=== PATIENT | male | born 1985 ===

== ENCOUNTER 2017-07-15 10:17 | Inpatient (IN) | payer OTHER ==
[2016-12-31 09:44] VITALS: BMI 34.0
[2017-07-15] MEDS ORDERED: Thrombin Topical 5,000 IU Spray Kit ONE ×2 (10:49→15:24)
[2017-07-15] MEDS ORDERED: Bacitracin Ointment 30 GM TUBE ONE ×2 (10:49→15:38)
[2017-07-15] MEDS ORDERED: Absorbable Gelatin Sponge Size 100 ONE (10:49)
[2017-07-15] MEDS ORDERED: Lidocaine 2% w Epi 1:100,000 Inj IJ ONE (10:50)
[2017-07-15] MEDS ORDERED: Propofol 10 mg/ml 1,000 MG/100 ML VIAL ONE (11:07)
[2017-07-15] MEDS ORDERED: Remifentanil 1 mg/3 ml Vial IV ONE (11:07)
[2017-07-15] MEDS ORDERED: Propofol 10 mg/ml Inj (20 ML) ONE ×5 (11:09→15:04)
[2017-07-15] MEDS ORDERED: Bupivacaine Liposomal Inj 20 ml INJ ONE (11:18)
[2017-07-15] MEDS ORDERED: Heparin 30,000 UNITS in Sodium Chloride 0.9% 1,000 ML IV ONE (11:24)
[2017-07-15] MEDS ORDERED: Midazolam 2 MG/2 ML VIAL ONE (11:36)
[2017-07-15] MEDS ORDERED: ceFAZolin IV 2 gm in Dextrose 1 GM/50 ML BAG IVPB ONE (11:52)
[2017-07-15] MEDS ORDERED: Sodium Chloride 0.9% 20 ML IV ONE ×2 (11:55→12:25)
[2017-07-15] MEDS ORDERED: Bupivacaine HCl 0.5% PF (10 ml) Inj ONE (12:29)
[2017-07-15] MEDS: ceFAZolin IV 1 gm in Dextrose 1 GM/50 ML BAG IVPB ONE (12:45)
[2017-07-15] MEDS ORDERED: Thrombin Topical 20,000 Intl Units Spray Kit TOP ONE (15:21)
[2017-07-15] MEDS ORDERED: Neostigmine Methylsulfate 3mg/3ml Syringe IV ONE (15:36)
[2017-07-15] MEDS: HYDROmorphone 0.5 mg/0.5 ml ISec IVP PRN ×2 (16:45→17:15)
[2017-07-15] MEDS: Potassium Ch 20mEq in D5-1/2NS 1,000 ML IV SCH (20:00)
[2017-07-16] MEDS: Potassium Ch 20mEq in D5-1/2NS 1,000 ML IV SCH ×5 (01:00→19:57)
[2017-07-16] MEDS: Lactated Ringer's 1,000 ML IV SCH (02:45)
--- NOTE | 2017-07-16 07:31 | OP ---
PROCEDURE DATE: 07/15/2017 PREOPERATIVE DIAGNOSES: Lumbar disc derangement with annular tear and chronic discogenic low back pain at L5-S1. POSTOPERATIVE DIAGNOSES: Lumbar disc derangement with annular tear and chronic discogenic low back pain at L5-S1. PROCEDURES: L5-S1 decompression, discectomy, interbody fusion, segmental pedicle screw fixation, and posterolateral fusion with iliac autograft. SURGEON: Dr. Manuel Diaz. CO-SURGEON: Dr. Quintana. TYPE OF ANESTHESIA: General endotracheal. ESTIMATED BLOOD LOSS: 600 mL, 250 mL returned via Cell Saver. COMPLICATIONS: None. JUSTIFICATION: The patient is status post on-the-job accident and suffering with severe low back pain with some radicular complaints. He failed rather extensive conservative treatment. MRI documented disc collapse, desiccation and annular tear at L5-S1. Provocative lumbar discography confirmed the diagnosis. The patient was offered the possibility of operative intervention by discectomy, interbody fusion, and segmental fixation. The nature of this procedure, the rationale behind it, alternatives, potential risks, complications, realistic chance of success and recovery time were discussed with him at length. All of his questions were answered. He fully understood all the above and he elected to proceed as offered. DESCRIPTION OF PROCEDURE: The patient was taken to the operating room. He was hooked up to neurophysiological monitoring, intubated, anesthetized, and carefully placed on the OR table on a Riccardo frame in a prone position. Care was taken to protect his face, eyes, endotracheal tube, and all bony prominences. The entire low back region was then hair clipped, scrubbed with acetone, scrubbed, painted, and draped in the usual sterile manner. Incision was localized with lateral fluoroscopy overlying the spinous processes of L4 through the sacrum. After prepping and draping, the incision was made with a #10 blade knife, carried down to the level of the fascia. The Bovie cautery was used to incise the fascia and strip the paraspinal muscles off the spinous processes and laminae of L5 through the sacrum. Deep self-retaining retractors were placed and the exposure was widened out bilaterally to expose the L5 transverse processes, the lateral pars, and the lateral facet, as well as the sacral ala. Bleeding was controlled throughout with Bovie cautery, thrombin powder, and Gelfoam. At this point, attention was turned towards bone harvestation. A 5 inch trocar was passed through the fascia directly into the right superior posterior iliac crest. Approximately 90 mL of marrow was aspirated. This was then spun down to obtain the bone marrow mesenchymal cells which was then later used in the fusion. The decompression was begun with the Leksell rongeur, removing the spinous process at S1 and the top of L5. The L5 lamina was further thinned down with the Leksell. This bone was saved for later use in the fusion. The laminotomy was then begun at this level with various sized Kerrison rongeurs removing approximately the inferior two-thirds of L5 lamina and performing generous medial facetectomies bilaterally. This was done with the assistance of a high-speed drill and various Kerrison and generous foraminotomy was performed at the exiting L5 nerve root. The S1 nerve root was traced out heading below the S1 pedicle and ensured that all four of the nerve roots were completely decompressed. Bleeding controlled throughout with thrombin, Gelfoam, and bipolar cautery with copious amounts at epidural veins that required bipolar coagulation. At this point, the left S1 nerve root was gently retracted medially, disc was excised and grossly adherent disc material with the use of pituitary rongeurs and 8 through 11 mm derrick were used to further remove all disc material, as well as annulus and began with decortication. This was completed with large curettes. Additionally, down-biting curette was used to remove some of the central disc prolapse and upbiting curette was similarly used to scrape some of the side areas by the lateral annulus. This identical procedure was then performed on the right side, after which bone grafting material was locally packed into the disc space. This included chopped off products of decompression and additional allograft and marrow-impregnated hydroxyapatite sponges. Following this, a 9 x 11 mm trapezoidal carbon-fiber PEEK cage filled with bone grafting material was tapped into the interspace until it was well seated and countersunk. This was confirmed visually and fluoroscopically and then, the identical grafting material and the same implant were then placed on the left side; again, visual inspection and lateral fluoroscopy confirmed excellent position of both the PEEK implants. We then turned our attention to the posterolateral fusion. A high-speed drill was used to decorticate the lateral surfaces which included the L5 transverse process, lateral pars, lateral facet, and sacral ala on both sides. At this point, we placed the pedicle screws. We used the technique of using constant lateral fluoroscopy identifying the pedicular entrance both fluoroscopically and visually, drilling the cortical bone, passing a Steffee gear shift down the balanced pedicle into vertebral body, sounding the passageway with a ball-tip probe to ensure there was bone all around, and then placing the appropriate-sized screw. Additionally, the gear shift and the screws were all stimulated with constant electrical current while monitoring EMG activity to ensure there was no evidence of electrophysiological breach. Using this technique, 6.0 diameter screws of 40 and 45 mm length were placed respectively at L5 and 7.0 diameter screws of 35 and 30 mm length were placed bilaterally at S1. No screw elicited any meaningful EMG activity (below 20 milliamps) and both lateral and AP fluoroscopy confirmed excellent position of all 4 screws. At this point, we placed the appropriate-sized titanium bal in the new screw head receptacles on each side. Locking nuts were then placed and torque-wrenched tight. We did attempt to place a cross connector, but because of the divergence of the 2 rods, this was impossible. We then placed all further bone grafting material into the lateral gutters; again, this included chopped off products of decompression, additional bone matrix protein, additional allograft and bone marrow mesenchymal cells impregnated on hydroxyapatite sponges. At this point, we ensured that the epidural space was completely free of bone, foreign matter, disc, etc. A layer of thrombin and powdered Gelfoam followed by a layer of solid Gelfoam was placed in the peridural space. The muscle reapproximated using interrupted 0 Vicryl. The fascia was closed using a tight interrupted 0 Vicryl stitch. The wound was copiously irrigated with the antibiotic solution. The subQ was closed in two separate layers of 2-0 Vicryl. The skin closed with running 3-0 Monocryl stitch, benzoin, and Steri-Strips. Dressings were applied. The patient was turned back onto a supine position. He was aroused from anesthesia and extubated. He was noted to be moving all groups of both lower extremities with excellent strength prior to leaving to the recovery room. All counts were correct. Neurophysiological monitoring including somatosensory evoked potentials and EMG remained stable throughout the procedure. No complications. Manuel Diaz MD [facility] # [id number]
[2017-07-16] MEDS: GlipiZIDE 2.5 mg Tab PO SCH (10:14)
--- NOTE | 2017-07-16 10:24 | RAD ---
PROCEDURE: INTRA UNDER FLUOROSCOPY LUMBAR SPINE HISTORY: FUSION L5/S1 COMPARISON: TECHNIQUE: Intraoperative fluoroscopy was provided to the referring physician to assist and lumbar spinal surgery. Spot fluoroscopic images have been submitted. FINDINGS: Five spot spot fluoroscopic images and submitted demonstrating localization of the L5-S1 level and operative procedure transfixing L5 and S1 vertebral bodies with posterior connecting rods and transpedicular screws placed bilaterally as well as intervertebral fusion. Please see report for further detail. 69.1 of fluoroscopy time was utilized with a total dose of 1.84 mGy recorded. IMPRESSION: As above and please sees op report for greater detail.
--- NOTE | 2017-07-16 15:25 | CP.PCM.PN ---
Subjective - Date & Time of Evaluation Date of Evaluation: 07/16/17 Time of Evaluation: 15:21 - Subjective Subjective: SPINE - POD #1 Pt resting in bed. Was OOB earlier. Complains of inability to void. No flatus yet. Wants a pill for sleeping but seems drowsy. VSS. Afebrile. Abd appears distended. Moves LE's actively. Neuro grossly intact. Plan: Bladder scan shows 825cc so will reinsert knapp for at least overnight. Continue to mobilize as tolerated. Has 17 steps at home so may need rehab if covered. Objective - Vital Signs/Intake and Output Vital Signs (last 24 hours): Temp Pulse Resp BP Pulse Ox 98.6 F 99 H 20 123/78 97 07/16/17 08:21 07/16/17 08:21 07/16/17 08:21 07/16/17 08:21 07/16/17 08:21 Intake and Output: 07/16/17 07/16/17 06:59 18:59 Intake Total 1120 Output Total 1050 Balance -1050 1120 - Medications Medications: Current Medications Acetaminophen (Tylenol 325mg Tab) 650 mg PO Q6 PRN PRN Reason: Fever >100.4 F Docusate Sodium (Colace) 100 mg PO BID [facility] Last Admin: 07/16/17 10:14 Dose: 100 mg Glipizide (Glucotrol) 2.5 mg PO DAILY [facility] Last Admin: 07/16/17 10:14 Dose: 2.5 mg Hydromorphone/Sodium Chloride (Dilaudid Chief Fundraising Officer) 6 mg IV Q4H PRN; Protocol PRN Reason: Pain, severe (8-10) Last Admin: 07/16/17 13:51 Dose: 6 mg Potassium Chloride/Dextrose/Sod Cl (Potassium Chl 20 Meq In D5-1/2ns) 1,000 mls @ 110 mls/hr IV .Q9H6M [facility] Last Admin: 07/16/17 13:43 Dose: 110 mls/hr Lactated Ringer's (Lactated Ringer's) 1,000 mls @ 100 mls/hr IV .Q10H [facility] Last Admin: 07/16/17 02:45 Dose: Not Given [facility]) [facility] Last Admin: 07/16/17 09:00 Dose: 500 mg Rosuvastatin Calcium (Crestor) 10 mg PO [facility] Last Admin: 07/15/17 22:07 Dose: 10 mg
[2017-07-17] MEDS: Potassium Ch 20mEq in D5-1/2NS 1,000 ML IV SCH ×3 (06:16→14:42)
--- NOTE | 2017-07-17 07:05 | OP ---
PROCEDURE DATE: 07/15/2017 PREOPERATIVE DIAGNOSIS: Disk derangement of L5-S1. POSTOPERATIVE DIAGNOSIS: Disk derangement of L5-S1. PROCEDURES: 1. Posterior lumbar interbody and lateral fusion L5-S1. 2. Use of intervertebral devices. 3. Use of non-segmental spinal instrumentation. 4. Autograft by means of bone marrow aspiration. SURGEON: Dr. Levi Quintana MD TYPE OF ANESTHESIA: General endotracheal intubation. DESCRIPTION OF PROCEDURE: The patient was brought to the operating room and general anesthesia was achieved. Intravenous antibiotics were administered while spinal cord monitoring leads were placed throughout the patient's body. Real time monitoring was done by communications technician in the room, and local monitoring done by physician as well. Sequential compression boots were placed each of the patient's legs. After the antibiotics administered, a Zhao catheter was inserted. The patient then gently transferred onto the operating table and placed prone on Riccardo frame, keeping his abdomen free of pressure anteriorly. Care was taken to protect the elbows and knees with pressure points. Sterile drape was used to seal the patient's perineal region in the operative field, and his back was scrubbed and sterilely prepped and draped. Level of an incision was noted under fluoroscopy, infiltrated lidocaine with epinephrine. Incision was made sharply in midline, taken down to the subcutaneous tissue using sharp and blunt dissection. Hemostasis achieved with electrocautery. The fascia is divided and stripped laterally of the spinous processes and laminae out to the level of transverse processes of L5 on each side as well as the sacral ala on each side. Soft tissue attachments were cleared using Patel elevators and electrocautery. Fluoroscopic views showed that we arrived at the appropriate levels. A trocar was placed at the posterior right ilium and 90 mL of bone marrow aspirate was obtained. This was sterilely passed off to the communications technician who processed this with harvest system to collect the mesenchymal stem cells. This was then sterilely passed back to the OR table. The marrow was used to process through the IC chamber as well as soak strips and cubes of CONFORM hydroxyapatite sponge. Thrombinated Gelfoam powder was used to hemostasis at the donor site. The Waynaut bone cutter was used to remove the spinous processes, the laminae thinned down with a Leksell rongeur. Laminectomy was then carried out and accorded to cephalad fashion in the midline and then taken out laterally on each side. At the level of the disc space, it was taken out laterally enough that we could pass a 9 x 11 trial broach to indicate that we had enough room for the intervertebral device. Hemostasis achieved with bipolar cautery as well as thrombinated Gelfoam powder. The thecal sac was gently retracted and the annulus incised sharply. Disc material was removed with a combination of pituitary rongeur and the endplate derrick up to including a size #11. Ring and spoon curettes were used as well. We then went to the opposite side where in similar fashion annulus was incised and again, the endplate derrick up to including size #11 were used along with pituitary rongeur and the ring and spoon curettes. Once all the tissue had cleared out of the disc space and of the endplates, the bone grafting substrate which consists of the IC chamber bone, the patient's own laminar bone, as well as Optium putty, was packed into the disc space along with cubes of the marrow soaked CONFORM. A 9 x 11 graft package was then tamped into place and countersunk. We then moved back to the original side where we inspected to make sure no remaining pieces of disc were present. Then more of the bone grafting substrate and the marrow soaked CONFORM Cubes were packed into the disc space along with another graft pack 9 x 11 cage. Visually, the cages appeared to be in good position. We then proceeded with the posterolateral fusion. The transverse processes of L5 on each side along with the L5-S1 facet joints and the sacral ala were all decorticated using the high-speed drill. Under fluoroscopic guidance, the entry point was made for the left L5 screw. The gear shift tool was used to create channel through the pedicle and the bony integrity confirmed with the ball tip probe and a 6.0 x 45 mm screw was inserted. On the right side, the similar technique was used with the drill and the gear shift tool. Again, once the bony integrity was confirmed with the ball tip probe, a 14 x 6.0 mm EXPEDIUM screw was inserted. Stimulation of the gear shift tool on each side as well as the shank and top of each screw revealed no electrophysiologic abnormalities. We then moved down to the S1 level where again under fluoroscopic guidance the entry point on each side was seen and opened with the drill. The gear shift tool was then used to create the channel into the sacrum on each side. The bony integrity confirmed and 7.0 x 30 mm screws used on the right and 7 x 35 mm screw on the left. A 35 mm pre-cut lordotic bal was used to connect the 2 screws on the left and 45 mm bal on the right. This was secured to the screws using caps and then appropriately torqued. The remaining marrow soaked strips of CONFORM along with the remaining bone grafting substrate was then packed lateral to the bal and into the decorticated facet joint. The midline was irrigated and inspected for any bone fragments. Hemostasis achieved with thrombinated Gelfoam powder and bipolar cautery. A large piece of solid Gelfoam was used to cover the exposed neural elements. Due to the divergent nature of the rods, we were unable to put a CrossLink on. The wound was then closed in layers with interrupted sutures of 0 Vicryl for the muscle and the fascia. The subcutaneous tissue was copiously irrigated with antibiotic solution. Paraspinal tissues were injected with 20 mL of 0.5% Marcaine along with 20 mL of Exparel diluted with 20 mL of saline. The subcutaneous tissue was then approximated with interrupted suture of 2-0 Vicryl. The skin was closed with a running subcuticular stitch of 3-0 Monocryl. Steri-Strips and a sterile dressing were applied. The patient was then gently transferred back onto a stretcher in supine position. He was awakened and extubated. He was taken to recovery room in stable condition. He tolerated the procedure well. Estimated blood loss was 600 mL. He received 2 L of crystalloid during the surgery as well as 250 mL back of Cell Saver. He had urine output of 250 mL over the course of the procedure. He was actively moving his extremities at the time of his transfer and no permanent electrophysiologic abnormalities were noted at the completion of the case. Leiv Quintana MD
[2017-07-17] MEDS: GlipiZIDE 2.5 mg Tab PO SCH (10:17)
[2017-07-17] MEDS: Lactated Ringer's 1,000 ML IV SCH ×2 (11:46→18:45)
[2017-07-17] MEDS ORDERED: Oxycodone/Acetaminophen 5/325 mg Tab PO PRN ×2 (12:15→12:28)
[2017-07-17] MEDS: Oxycodone/Acetaminophen 5/325 mg Tab PO PRN ×3 (12:45→19:48)
--- NOTE | 2017-07-17 14:37 | CP.PCM.PN ---
Subjective - Date & Time of Evaluation Date of Evaluation: 07/17/17 Time of Evaluation: 14:35 - Subjective Subjective: POD 2 doing well c/o constipation ambulated with PT eating urinated 5/5 strength throughout P cont mobilization fleet enema ss working on dc plan Objective - Vital Signs/Intake and Output Vital Signs (last 24 hours): Temp Pulse Resp BP Pulse Ox 99.7 F H 117 H 20 110/64 97 07/17/17 07:15 07/17/17 07:15 07/17/17 07:15 07/17/17 07:15 07/17/17 07:15 Intake and Output: 07/17/17 07/17/17 06:59 18:59 Intake Total 2180 Output Total 2300 Balance -120 - Medications Medications: Current Medications Acetaminophen (Tylenol 325mg Tab) 650 mg PO Q6 PRN PRN Reason: Fever >100.4 F Last Admin: 07/16/17 23:34 Dose: 650 mg Docusate Sodium (Colace) 100 mg PO BID [facility] Last Admin: 07/17/17 11:48 Dose: 100 mg Glipizide (Glucotrol) 2.5 mg PO DAILY [facility] Last Admin: 07/17/17 10:17 Dose: 2.5 mg Potassium Chloride/Dextrose/Sod Cl (Potassium Chl 20 Meq In D5-1/2ns) 1,000 mls @ 110 mls/hr IV .Q9H6M [facility] Last Admin: 07/17/17 11:44 Dose: 110 mls/hr Lactated Ringer's (Lactated Ringer's) 1,000 mls @ 100 mls/hr IV .Q10H [facility] Last Admin: 07/17/17 11:46 Dose: Not Given [facility] Last Admin: 07/17/17 08:18 Dose: 500 mg Oxycodone HCl (Oxycontin Extended Release Tab) 20 mg PO Q12 [facility] Oxycodone/Acetaminophen (Percocet 5/325 Mg Tab) 2 tab PO Q4H PRN PRN Reason: Pain, severe (8-10) Stop: 07/20/17 12:28 Last Admin: 07/17/17 12:45 Dose: 2 tab Oxycodone/Acetaminophen (Percocet 5/325 Mg Tab) 1 tab PO Q4H PRN PRN Reason: Pain, moderate (4-7) Stop: 07/20/17 12:29 Rosuvastatin Calcium (Crestor) 10 mg PO HS [facility] Last Admin: 07/16/17 21:25 Dose: 10 mg Sodium Phosphate (Fleet Enema) 135 ml GA ONCE ONE Stop: 07/17/17 14:35
[2017-07-17] MEDS ORDERED: Magnesium Hydroxide Susp 30 ml UD PO ONE (20:47)
[2017-07-17] MEDS: oxyCODONE 20 mg ER Tab (oxyCONTIN) PO SCH (21:31)
[2017-07-18] MEDS: Oxycodone/Acetaminophen 5/325 mg Tab PO PRN ×2 (03:26→16:28)
[2017-07-18] MEDS: Potassium Ch 20mEq in D5-1/2NS 1,000 ML IV SCH (08:20)
[2017-07-18] MEDS: oxyCODONE 20 mg ER Tab (oxyCONTIN) PO SCH ×2 (09:58→21:17)
[2017-07-18] MEDS: GlipiZIDE 2.5 mg Tab PO SCH (10:02)
[2017-07-18] MEDS: Lactated Ringer's 1,000 ML IV SCH (14:30)
--- NOTE | 2017-07-18 17:04 | CP.PCM.PN ---
Subjective - Date & Time of Evaluation Date of Evaluation: 07/18/17 Time of Evaluation: 17:00 - Subjective Subjective: SPINE - POD #3 Pt resting in bed. Appears more comfortable. States he amb in arreguin earier w RW. Still upset no signif BM. Explained as he wasn't eating much may not be a lot inside. VSS. Afebrile. Neuro remains intact. Incision clean and dry. Abd soft, non- distended. Plan: Cont to mobilize as tolerated. PT again Thursday. Has 17 steps at home so need to see if cleared for d/c home or authorized for acute rehab transfer. Objective - Vital Signs/Intake and Output Vital Signs (last 24 hours): Temp Pulse Resp BP Pulse Ox 98.1 F 111 H 20 119/79 96 07/18/17 15:34 07/18/17 15:34 07/18/17 15:34 07/18/17 15:34 07/18/17 15:34 Intake and Output: 07/18/17 07/18/17 06:59 18:59 Intake Total 1250 Output Total 1000 Balance 250 - Medications Medications: Current Medications Acetaminophen (Tylenol 325mg Tab) 650 mg PO Q6 PRN PRN Reason: Fever >100.4 F Last Admin: 07/16/17 23:34 Dose: 650 mg Docusate Sodium (Colace) 100 mg PO BID [facility] Last Admin: 07/18/17 10:02 Dose: 100 mg Glipizide (Glucotrol) 2.5 mg PO DAILY [facility] Last Admin: 07/18/17 10:02 Dose: 2.5 mg Lactated Ringer's (Lactated Ringer's) 1,000 mls @ 100 mls/hr IV .Q10H [facility] Last Admin: 07/18/17 14:30 Dose: Not Given [facility] Last Admin: 07/18/17 16:29 Dose: 500 mg Oxycodone HCl (Oxycontin Extended Release Tab) 20 mg PO Q12 [facility] Last Admin: 07/18/17 09:58 Dose: 20 mg Oxycodone/Acetaminophen (Percocet 5/325 Mg Tab) 2 tab PO Q4H PRN PRN Reason: Pain, severe (8-10) Stop: 07/20/17 12:28 Last Admin: 07/18/17 16:28 Dose: 2 tab Oxycodone/Acetaminophen (Percocet 5/325 Mg Tab) 1 tab PO Q4H PRN PRN Reason: Pain, moderate (4-7) Stop: 07/20/17 12:29 Rosuvastatin Calcium (Crestor) 10 mg PO HS [facility] Last Admin: 07/17/17 21:31 Dose: 10 mg
[2017-07-19] MEDS: Oxycodone/Acetaminophen 5/325 mg Tab PO PRN ×2 (02:06→13:19)
[2017-07-19] MEDS: GlipiZIDE 2.5 mg Tab PO SCH (09:57)
[2017-07-19] MEDS: oxyCODONE 20 mg ER Tab (oxyCONTIN) PO SCH ×2 (09:58→21:34)
--- NOTE | 2017-07-19 11:45 | CP.PCM.PN ---
Subjective - Date & Time of Evaluation Date of Evaluation: 07/19/17 Time of Evaluation: 11:44 - Subjective Subjective: ambulating stais yesterday lesspain neuro stable p ss for dc planning Objective - Vital Signs/Intake and Output Vital Signs (last 24 hours): Temp Pulse Resp BP Pulse Ox 97.7 F 107 H 18 98/61 L 97 07/19/17 07:30 07/19/17 07:30 07/19/17 07:30 07/19/17 07:30 07/19/17 07:30 Intake and Output: 07/19/17 07/19/17 06:59 18:59 Output Total 600 Balance -600 - Medications Medications: Current Medications Acetaminophen (Tylenol 325mg Tab) 650 mg PO Q6 PRN PRN Reason: Fever >100.4 F Last Admin: 07/16/17 23:34 Dose: 650 mg Docusate Sodium (Colace) 100 mg PO BID [facility] Last Admin: 07/19/17 09:57 Dose: 100 mg Glipizide (Glucotrol) 2.5 mg PO DAILY [facility] Last Admin: 07/19/17 09:57 Dose: 2.5 mg Metformin HCl (Glucophage) 500 mg PO BIDCC [facility] Last Admin: 07/19/17 09:57 Dose: 500 mg Oxycodone HCl (Oxycontin Extended Release Tab) 20 mg PO Q12 [facility] Last Admin: 07/19/17 09:58 Dose: 20 mg Oxycodone/Acetaminophen (Percocet 5/325 Mg Tab) 2 tab PO Q4H PRN PRN Reason: Pain, severe (8-10) Stop: 07/20/17 12:28 Last Admin: 07/19/17 02:06 Dose: 2 tab Oxycodone/Acetaminophen (Percocet 5/325 Mg Tab) 1 tab PO Q4H PRN PRN Reason: Pain, moderate (4-7) Stop: 07/20/17 12:29 Rosuvastatin Calcium (Crestor) 10 mg PO [facility] Last Admin: 07/18/17 21:16 Dose: 10 mg
--- NOTE | 2017-07-20 07:27 | HP ---
HISTORY OF PRESENT ILLNESS: Mr. Thomas is a 32-year-old gentleman who was initially on the job approximately 02/2015, he fell approximately 12 feet. He badly fractured his left wrist, both feet, and developed low back pain. He has severe pain in low lumbar area, radiates laterally to both sides. He rates the level of pain as an 8 on a 0 to 10 scale. He is quite miserable and is quite debilitated, was never able to return to work. He was treated with conservative treatment with multiple weeks of physiotherapy without benefit. He has also had some spinal injections. He failed all the above. His MRI documented disc prolapse with an annular tear at the L5-S1 level, provocative lumbar discography confirmed this as the pain generator. He is being admitted for L5-S1 discectomy, interbody fusion, and segmental fixation. PAST MEDICAL HISTORY: Negative other than his most recent injury. ALLERGIES: HE DENIES ANY ALLERGIES TO MEDICATION. PAST SOCIAL HISTORY: He has never smoked. He never drinks. PHYSICAL EXAMINATION: GENERAL: He does have good strength throughout. Sensory exam is within normal limits. Reflexes are 2+. Straight leg raising is negative for radicular pain. He has a fair amount of tenderness to palpation in the lumbosacral junction. His range of motion is markedly limited both on flexion and extension. His baseline gait is within normal limits. IMPRESSION: The patient is now being admitted for L5-S1 decompression, fixation and fusion. 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 All his questions were answered. He fully understood of the above and would like to proceed, he is now being admitted for this procedure. Manuel Diaz MD
[2017-07-20] MEDS: oxyCODONE 20 mg ER Tab (oxyCONTIN) PO SCH ×2 (09:52→21:27)
[2017-07-20] MEDS: GlipiZIDE 2.5 mg Tab PO SCH (09:54)
--- NOTE | 2017-07-20 14:42 | CP.PCM.PN ---
Subjective - Date & Time of Evaluation Date of Evaluation: 07/20/17 Time of Evaluation: 14:38 - Subjective Subjective: SPINE - POD #5 Pt states he is amb on own to and in hallway. Doesn't feel he can do 17 steps at home however. Still waiting to hear from rehab facility in [place]. VSS. Afebrile. Neuro intact. Nursing listened and pt w normoactive bowel sounds. Abd soft, non-tender, non-distended. Plan: transfer to rehab when bed available. Explained via licensed professional counselor that bowels not very productive as pt not eating a lot, reportedly had large BM after enema over weekend, and natural slowing w narcotics. Objective - Vital Signs/Intake and Output Vital Signs (last 24 hours): Temp Pulse Resp BP Pulse Ox 98.7 F 96 H 20 110/70 97 07/20/17 09:42 07/20/17 09:42 07/20/17 09:42 07/20/17 09:42 07/20/17 09:42 - Medications Medications: Current Medications Acetaminophen (Tylenol 325mg Tab) 650 mg PO Q6 PRN PRN Reason: Fever >100.4 F Last Admin: 07/16/17 23:34 Dose: 650 mg Docusate Sodium (Colace) 100 mg PO BID [facility] Last Admin: 07/20/17 09:53 Dose: 100 mg Glipizide (Glucotrol) 2.5 mg PO DAILY [facility] Last Admin: 07/20/17 09:54 Dose: 2.5 mg Metformin HCl (Glucophage) 500 mg PO BIDCC [facility] Last Admin: 07/20/17 09:51 Dose: 500 mg Oxycodone HCl (Oxycontin Extended Release Tab) 20 mg PO Q12 [facility] Last Admin: 07/20/17 09:52 Dose: 20 mg Rosuvastatin Calcium (Crestor) 10 mg PO HS [facility] Last Admin: 07/19/17 21:34 Dose: 10 mg
[2017-07-21 08:48] VITALS: BP 106/68; TEMP 97
[2017-07-21] MEDS: GlipiZIDE 2.5 mg Tab PO SCH (10:07)
[2017-07-21] MEDS: oxyCODONE 20 mg ER Tab (oxyCONTIN) PO SCH (10:08)
[2017-07-21 11:28] VITALS: PULSE 89; RESP 20; O2SAT 98
--- NOTE | 2017-07-21 14:25 | CP.PCM.PN ---
Subjective - Date & Time of Evaluation Date of Evaluation: 07/21/17 Time of Evaluation: 14:24 - Subjective Subjective: SPINE - POD #6 Pt amb 300', did 20 steps today. Therefore will d/c to home. Recheck in 10-[address] Diaz Objective - Vital Signs/Intake and Output Vital Signs (last 24 hours): Temp Pulse Resp BP Pulse Ox 97.0 F L 89 20 106/68 98 07/21/17 08:47 07/21/17 08:47 07/21/17 08:47 07/21/17 08:47 07/21/17 08:47 Intake and Output: 07/21/17 07/21/17 06:59 18:59 Intake Total 800 Balance 800 - Medications Medications: Current Medications Acetaminophen (Tylenol 325mg Tab) 650 mg PO Q6 PRN PRN Reason: Fever >100.4 F Last Admin: 07/16/17 23:34 Dose: 650 mg Docusate Sodium (Colace) 100 mg PO BID [facility] Last Admin: 07/21/17 10:07 Dose: 100 mg Glipizide (Glucotrol) 2.5 mg PO DAILY [facility] Last Admin: 07/21/17 10:07 Dose: 2.5 mg Metformin HCl (Glucophage) 500 mg PO BIDCC [facility] Last Admin: 07/21/17 08:23 Dose: 500 mg Oxycodone HCl (Oxycontin Extended Release Tab) 20 mg PO Q12 [facility] Last Admin: 07/21/17 10:08 Dose: Not Given Rosuvastatin Calcium (Crestor) 10 mg PO HS [facility] Last Admin: 07/20/17 21:26 Dose: 10 mg
== END 2017-07-21 15:18 | disposition home or self-care (01) | DRG 460 ==
LOC: EDBD → C.9S 10:17 → C.6T 20:25
PROVIDERS: ADMIT Neurological Surgery; ATTEND Neurological Surgery
PROC: 0SB40ZZ Excision of Lumbosacral Disc, Open Approach (ICD-10-PCS; 2017-07-15)
PROC: 0QB20ZZ Excision of Right Pelvic Bone, Open Approach (ICD-10-PCS; 2017-07-15)
PROC: 07DR3ZZ Extraction of Iliac Bone Marrow, Percutaneous Approach (ICD-10-PCS; 2017-07-15)
PROC: 0SG30A1 (ICD-10-PCS; principal; 2017-07-15 11:30)
DX: M51.37 Other intervertebral disc degeneration, lumbosacral region (principal)